=== PATIENT | male | born 1990 | race Caucasian/White ===

== ENCOUNTER → 2018-08-21 12:24 | Outpatient (CLI) | payer OTHER | END | disposition home or self-care (01) | LOC: D.MRI 12:24 | PROVIDERS: ATTEND Orthopaedic Surgery | DX: S83.512A Sprain of anterior cruciate ligament of left knee, initial encounter (principal); X58.XXXA Exposure to other specified factors, initial encounter ==

== ENCOUNTER → 2020-05-29 12:44 | Outpatient (CLI) | payer OTHER | END | disposition home or self-care (01) | LOC: D.MRI 12:44 | PROVIDERS: ATTEND Orthopaedic Surgery | DX: M93.262 Osteochondritis dissecans, left knee (principal) ==